=== PATIENT | male | born 1995 | race Caucasian/White ===

== ENCOUNTER 2025-04-02 16:00 | Emergency (ER) | payer MEDICAID, OTHER ==
[~2025-04-02] VITALS: Ht 180.3 cm; Wt 109.0 kg
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
[2025-04-02 16:59] VITALS: PULSE 118; RESP 16; TEMP 98.4; O2SAT 99
[2025-04-02 17:11] VITALS: BP 137/88
[2025-04-02] MEDS ORDERED: BACL10TA PO (17:11)
[2025-04-02] MEDS ORDERED: IBUP-1456 PO (17:11)
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
[2025-04-02] MEDS: ACETAMINOPHEN 325 MG TAB PO ONE (17:20)
== END 2025-04-02 17:31 | disposition home or self-care (01) ==
LOC: ER 16:00 → EDBD 16:00 → ER 17:31
DX: S16.1XXA Strain of muscle, fascia and tendon at neck level, initial encounter (principal); S29.011A Strain of muscle and tendon of front wall of thorax, initial encounter; I10 Essential (primary) hypertension; Z79.899 Other long term (current) drug therapy; V89.2XXA Person injured in unspecified motor-vehicle accident, traffic, initial encounter; Y93.I9 Activity, other involving external motion; Y92.488 Other paved roadways as the place of occurrence of the external cause; Y99.8 Other external cause status
CPT/HCPCS: 71101; 72040

== ENCOUNTER 2025-04-12 09:29 | Emergency (ER) | payer MEDICAID ==
[~2025-04-12] VITALS: Ht 180.3 cm; Wt 108.8 kg
[~2025-04-12 09:29] MED LIST: BACL10TA PO; IBUP-1456 PO
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
[2025-04-12] MEDS ORDERED: IBU600T PO (10:10)
--- NOTE | 2025-04-12 10:28 | DVH ---
X-ray left shoulder Technique: AP internal and external rotation views and transscapular views REASON FOR EXAM: Pain FINDINGS: No fractures or dislocations. No erosions or periosteal reaction. Articular surfaces are smooth. IMPRESSION: 1. No acute bony pathology
[2025-04-12 11:12] VITALS: BP 152/97; PULSE 87; RESP 18; TEMP 98.4; O2SAT 100
== END 2025-04-12 11:15 | disposition home or self-care (01) ==
LOC: ER 09:29
DX: M25.512 Pain in left shoulder (principal); I10 Essential (primary) hypertension; Z79.899 Other long term (current) drug therapy; Z79.1 Long term (current) use of non-steroidal anti-inflammatories (NSAID)
CPT/HCPCS: 73030